=== PATIENT | female | born 1980 | race Caucasian/White ===

== ENCOUNTER 2018-12-25 07:20 | Emergency (ER) | payer SELFPAY ==
[~2018-12-25] VITALS: Ht 157.5 cm; Wt 59.3 kg
[~2018-12-25 07:20] MED LIST: CEPH-443 PO
[2018-12-25 07:23] VITALS: BP 110/68; PULSE 83; RESP 18; Ht 157.5 cm; Wt 59.3 kg
[2018-12-25] MEDS ORDERED: ONDANSETRON (ODT) 4 MG TAB ODT STA (07:57)
[2018-12-25] MEDS ORDERED: LOPE2CAP PO (07:59)
[2018-12-25] MEDS ORDERED: ACET-141 PO (07:59)
[2018-12-25] MEDS ORDERED: ONDA4TAB14 PO (07:59)
--- NOTE | 2018-12-25 08:01 | ERD ---
ER Documentation Chief Complaint Chief Complaint mid abdominal pain,nausea,diarrhea x 3 days HPI 38-year-old female presents for periumbilical abdominal pain x3 days. There is associated nausea and diarrhea. Patient states that the pain is diffuse, rated 3 out of 10 currently. Diarrhea is noted to be watery. There is no blood noted. No recent travel. Patient has been having nausea but no vomiting. No treatments tried at home. No modifying factors noted. She denies fevers or chills. Denies chest pain or shortness of breath. No significant past medical history. ROS All systems reviewed and are negative except as per history of present illness. Medications Home Meds Active Scripts Ondansetron (Ondansetron Odt) 4 Mg Tab.rapdis, 4 MG PO Q6H PRN for NAUSEA AND/OR VOMITING, #15 TAB Prov:GAIL HARDY DO 12/25/18 Loperamide Hcl* (Imodium*) 2 Mg Capsule, 2 MG PO .AFTER EA LOOSE BM PRN for DIARRHEA, #20 TAB Prov:GAIL HARDY DO 12/25/18 Acetaminophen* (Acetaminophen*) 500 MG Extra Strength Tablet, 500 MG PO Q4H PRN for PAIN AND OR ELEVATED TEMP, #30 TAB Prov:GAIL HARDY DO 12/25/18 Cephalexin* (Keflex*) 500 Mg Capsule, 500 MG PO QID for 7 Days, CAP Prov:CAROLINE WHITMAN MD 08/01/15 Allergies Allergies: Coded Allergies: No Known Allergies (Unverified Allergy, Unknown, 12/25/18) PMhx/Soc Medical and Surgical Hx: pt denies Medical Hx History of Surgery: Yes () Hx Alcohol Use: No Hx Substance Use: No Hx Tobacco Use: No Smoking Status: Never smoker FmHx Family History: No coronary disease Physical Exam Vitals Vital Signs Date Temp Pulse Resp B/P (MAP) Pulse Ox O2 O2 Flow FiO2 Time Delivery Rate 12/25/18 97.8 83 18 110/68 98 07:23 (82) Physical Exam Const: No acute distress Resp: Clear to auscultation bilaterally Cardio: Regular rate and rhythm, no murmurs Abd: Soft, non distended. Normal bowel sounds, mild periumbilical tenderness palpation, no McBurney's point tenderness, no Spencer sign, no rebound or guarding noted Skin: No petechiae or rashes Back: No midline or flank tenderness Ext: No cyanosis, or edema Neur: Awake and alert Psych: Normal Mood and Affect Results 24 hrs Current Medications Medications Dose Sig/Krishna Start Time Status Last (Trade) Ordered Route PRN Stop Time Admin Dose Reason Admin Ondansetron 4 mg ONCE STAT 12/25/18 DC 12/25/18 HCl (Zofran ODT 07:57 08:03 Odt) 12/25/18 07:58 Procedures/MDM Medical Decision Making: Differential diagnosis includes but not limited to acute gastritis, acute gastroenteritis, appendicitis, cholecystitis, pancreatitis, nephrolithiasis Patient appeared well on physical exam. Nontoxic appearing. ED course: Patient was given Zofran. Symptoms improved with treatment. Abdominal examination benign, low suspicion for acute abdomen at this point Patient likely has acute gastroenteritis Prescription(s): Patient given prescription for supportive medications . Patient advised regarding importance of hydration. Patient advised to follow up with PCP in 1-2 days. Patient advised to return to ED for new or worsening symptoms. Patient stable on discharge from the ED. Disclaimer: Inadvertent spelling and grammatical errors are likely due to [employer] R/dictation software use and do not reflect on the overall quality of patient care. Also, please note that the electronic time recorded on this note does not necessarily reflect the actual time of the patient encounter. Departure Diagnosis: Primary Impression: Diarrhea Diarrhea type: unspecified type Qualified Codes: R19.7 - Diarrhea, unspecified Condition: Fair Patient Instructions: Treating Diarrhea, Self-Care for Vomiting and Diarrhea Referrals: [facility] YOU HAVE RECEIVED A MEDICAL SCREENING EXAM AND THE RESULTS INDICATE THAT YOU DO NOT HAVE A CONDITION THAT REQUIRES URGENT TREATMENT IN THE EMERGENCY DEPARTMENT. FURTHER EVALUATION AND TREATMENT OF YOUR CONDITION CAN WAIT UNTIL YOU ARE SEEN IN YOUR DOCTORS OFFICE WITHIN THE NEXT 1-2 DAYS. IT IS YOUR RESPONSIBILITY TO MAKE AN APPOINTMENT FOR FOLOW-UP CARE. IF YOU HAVE A PRIMARY DOCTOR --you should call your primary doctor and schedule an appointment IF YOU DO NOT HAVE A PRIMARY DOCTOR YOU CAN CALL OUR PHYSICIAN REFERRAL HOTLINE AT IF YOU CAN NOT AFFORD TO SEE A PHYSICIAN YOU CAN CHOSE FROM THE FOLLOWING [facility] [address] [facility]. [facility] [address] [facility] [facility] [address] [facility] [facility] [address] [facility]. [facility] [address] [facility] [facility]. [address] Additional Instructions: Llame al doctor MAANA y job jm MERY PARA DENTRO DE 1-2 BANERJEE.Dgale a la secretaria que nosotros le instruimos hacer esta mery.Avise o llame si elizondo condicin se empeora antes de la mery. Regresa aqui si peor o no mejor.Call your primary care doctor TOMORROW for an appointment during the next 1-2 days.See the doctor sooner or return here if your condition worsens before your appointment time. GAIL HARDY DO Dec 25, 2018 08:01
== END 2018-12-25 11:24 | disposition home or self-care (01) ==
LOC: FTE 07:20
DX: R19.7 Diarrhea, unspecified (principal); R11.0 Nausea
CPT/HCPCS: 99283

== ENCOUNTER 2019-04-22 12:24 | Inpatient (IN) | payer MEDICAID ==
[~2019-04-22] VITALS: Ht 152.4 cm; Wt 68.3 kg
[~2019-04-22 12:24] MED LIST changes: +ACET-141 PO; +LOPE2CAP PO; +ONDA4TAB14 PO
[2019-04-22 12:30] VITALS: Ht 152.4 cm; Wt 68.3 kg
[2019-04-22] MEDS: LACTATED RINGER'S 1,000 ML IV SCH ×2 (13:30→18:49)
[2019-04-22] MEDS ORDERED: TERBUTALINE 1 MG/ML INJ SC SCH (15:30)
[2019-04-23] MEDS: LACTATED RINGER'S 1,000 ML IV SCH ×3 (02:59→20:12)
[2019-04-23] MEDS: ACCU-CHEK XX SCH (20:53)
[2019-04-24] MEDS: LACTATED RINGER'S 1,000 ML IV SCH (05:53)
[2019-04-24] MEDS: ACCU-CHEK XX SCH (08:56)
== END 2019-04-24 12:50 | disposition home or self-care (01) | DRG 833 ==
LOC: OBT 12:24 → L-D 12:26 → OBT 13:05 → PP1 21:45
PROVIDERS: ADMIT Obstetrics & Gynecology; ATTEND Obstetrics & Gynecology
DX: O60.03 Preterm labor without delivery, third trimester (principal); O26.893 Other specified pregnancy related conditions, third trimester; O24.410 Gestational diabetes mellitus in pregnancy, diet controlled; S30.0XXA Contusion of lower back and pelvis, initial encounter; W18.30XA Fall on same level, unspecified, initial encounter; Y93.01 Activity, walking, marching and hiking; O09.523 Supervision of elderly multigravida, third trimester; Z3A.30 30 weeks gestation of pregnancy
CPT/HCPCS: 76817; 76818; 81001; 82947; 82962; 85014; 85018; 85025; 85384; 85460; 86850; 86900; 86901; G0463; J3105; J7120